=== PATIENT | male | born 1990 | race Caucasian/White ===

== ENCOUNTER 2019-08-09 10:24 | Emergency (ER) | payer SELFPAY ==
[2019-08-09 10:31] VITALS: BP 141/86
--- NOTE | 2019-08-09 11:10 | Emergency Department Report ---
ED Abdominal Pain HPI - General Chief Complaint: Urogenital-Male Stated Complaint: URINING BLOOD Time Seen by Provider: 08/09/19 11:01 Source: patient Mode of arrival: Ambulatory Limitations: No Limitations - History of Present Illness Initial Comments: 29 YO MALE COMES TO ER WITH HEMATURIA AND ABD PAIN. HE HAS 1 KIDNEY - OTHER REMOVED AT AND HE DOES NOT KNOW WHY. NO FEVER OR CHILLS DENIES N/V/D NO PENILE DC NO TESTICULAR PAIN DOES NOT FOLLOW WITH PCP OR NEPHROLOGY METH YESTERDAY OCC ETOH OCC CIG- TRYING TO STOP -: Sudden, days(s) Location: diffuse - Related Data Previous Rx's Medication Instructions Recorded Last Taken Type Doxycycline Monohydrate 100 mg PO BID #20 tablet 08/09/19 Unknown Rx Allergies Allergy/AdvReac Type Severity Reaction Status Date / Time No Known Allergies Allergy Verified 08/09/19 10:26 ED Review of Systems ROS: Stated complaint: URINING BLOOD Other details as noted in HPI Comment: All other systems reviewed and negative ED Past Medical Hx - Past Medical History Previous Medical History?: Yes Hx Hypertension: Yes - Surgical History Past Surgical History?: Yes Additional Surgical History: abd surg, kidney removed, skull fracture - Family History Family history: no significant - Social History Smoking Status: Current Every Day Smoker Substance Use Type: Alcohol, Methamphetamines - Medications Home Medications: Home Medications Medication Instructions Recorded Confirmed Last Taken Type Doxycycline Monohydrate 100 mg PO BID #20 tablet 08/09/19 Unknown Rx ED Physical Exam - General Limitations: No Limitations General appearance: alert, in no apparent distress - Head Head exam: Present: atraumatic, normocephalic - Eye Eye exam: Present: normal appearance - ENT ENT exam: Present: mucous membranes moist - Neck Neck exam: Present: normal inspection - Respiratory Respiratory exam: Present: normal lung sounds bilaterally. Absent: respiratory distress - Cardiovascular Cardiovascular Exam: Present: regular rate, normal rhythm. Absent: systolic murmur, diastolic murmur, rubs, gallop - GI/Abdominal GI/Abdominal exam: Present: soft, normal bowel sounds - Rectal Rectal exam: Present: deferred - Extremities Exam Extremities exam: Present: normal inspection - Back Exam Back exam: Present: normal inspection - Neurological Exam Neurological exam: Present: alert, oriented X3 - Psychiatric Psychiatric exam: Present: normal affect, normal mood - Skin Skin exam: Present: warm, dry, intact, normal color. Absent: rash ED Course Vital Signs 08/09/19 10:30 Temperature 97.7 F Pulse Rate 101 H Respiratory 18 Rate Blood Pressure 141/86 O2 Sat by Pulse 100 Oximetry ED Medical Decision Making - Lab Data Result diagrams: 08/09/19 12:00 08/09/19 12:10 - Radiology Data Radiology results: report reviewed, image reviewed - Medical Decision Making Vital Signs 08/09/19 10:30 Temperature 97.7 F Pulse Rate 101 H Respiratory 18 Rate Blood Pressure 141/86 O2 Sat by Pulse 100 Oximetry Labs 08/09/19 08/09/19 10:32 12:00 WBC 11.2 H RBC 5.61 H Hgb 16.3 H Hct 48.3 H MCV 86 MCH 29 MCHC 34 RDW 13.6 Plt Count 154 Urine Color Yellow Urine Turbidity Hazy Urine pH 5.0 Ur Specific [place] 1.029 Urine Protein 100 mg/dl Urine Glucose (UA) Neg Urine Ketones Neg Urine Blood Mod Urine Nitrite Neg Urine Bilirubin Neg Urine Urobilinogen < 2.0 Ur Leukocyte Esterase Sm Urine WBC (Auto) 32.0 H Urine RBC (Auto) 11.0 U Epithel Cells (Auto) < 1.0 Urine Mucus Few Labs 08/09/19 08/09/19 08/09/19 10:32 12:00 12:10 WBC 11.2 H RBC 5.61 H Hgb 16.3 H Hct 48.3 H MCV 86 MCH 29 MCHC 34 RDW 13.6 Plt Count 154 Sodium 135 L Potassium 4.0 Chloride 96.3 L Carbon Dioxide 23 Anion Gap 20 BUN 13 Creatinine 0.9 Estimated GFR > 60 BUN/Creatinine Ratio 14 Glucose 105 H Calcium 9.6 Total Bilirubin 0.90 AST 29 ALT 58 H Alkaline Phosphatase 83 Total Protein 8.4 H Albumin 4.6 Albumin/Globulin Ratio 1.2 Urine Color Yellow Urine Turbidity Hazy Urine pH 5.0 Ur Specific [place] 1.029 Urine Protein 100 mg/dl Urine Glucose (UA) Neg Urine Ketones Neg Urine Blood Mod Urine Nitrite Neg Urine Bilirubin Neg Urine Urobilinogen < 2.0 Ur Leukocyte Esterase Sm Urine WBC (Auto) 32.0 H Urine RBC (Auto) 11.0 U Epithel Cells (Auto) < 1.0 Urine Mucus Few LABS NOTED CR NORMAL PROTEIN NOTED GIVEN PT HAS ONLY 1 KIDNEY I'M CONCERNED FOR THE PROTEIN/HEMATURIA/BLOOD. NO TESTICULAR PAIN. NO DISCHARGE. NOT CONCERNED FOR STI CT SCAN NOTED MEDS GIVEN 1L NS AND 1 GM ROCEPHIN IV VSS NO FEVER NO CHILLS AMBULATORY TAKING PO EDUCATED ON NEED TO ABSTAIN FROM METH USE. NEEDS TO SEE NEPHROLOGY MD DISCUSSED WITH NEPHROLOGY DR AGUAYO- OK TO DC HOME WITH FOLLOW UP PT VERBALIZES UNDERSTANDING OF THE IMPORT OF HIM FOLLOWING UP. - Differential Diagnosis RO ACUTE KIDNEY FAILURE/ INSUFF; STD; UTIL; K STONE Critical care attestation.: If time is entered above; I have spent that time in minutes in the direct care of this critically ill patient, excluding procedure time. ED Disposition Clinical Impression: Hematuria Disposition: DC-01 TO HOME OR SELFCARE Is pt being admited?: No Does the pt Need Aspirin: No Condition: Stable Instructions: Acute Hematuria (ED) Additional Instructions: YOU NEED TO SEE KIDNEY MD ALICE REFERRAL BELOW FOLLOW UP WITH PCP REFERRAL BELOW STAY WELL HYDRATED AVOID CIG/ALCOHOL AND DRUGS MED ORDERED TODAY Prescriptions: Doxycycline Monohydrate 100 mg PO BID #20 tablet Referrals: CORDELIA AGUAYO MD [Staff Physician] - 3-5 Days KAYLEY ZAIDI MD [Staff Physician] - 3-5 Days Time of Disposition: 13:05
[2019-08-09 11:46] LABS: Bilirubin,Urine NEG (Negative); Blood,Urine MOD (Negative); Color,Urine Yellow (Yellow); Mucus,Urine FEW /HPF; Urobilinogen,Urine < 2.0 mg/dL (<2.0)
[2019-08-09] MEDS ORDERED: SODIUM CHLORIDE 0.9% 1000 ML 1,000 ML IV ONE (11:51)
[2019-08-09] MEDS ORDERED: cefTRIAXone/NS 1 GM/50 ML 1 GM/50 ML BAG IV ONE (12:05)
[2019-08-09 12:30] LABS: Hematocrit 48.3 % (35.5-45.6); Hemoglobin 16.3 gm/dl (11.8-15.2); Mean Corpuscular HGB Conc 34 % (32-34); Mean Corpuscular Volume 86 fl (84-94); Platelet Count 154 K/mm3 (140-440); Red Blood Count 5.61 M/mm3 (3.65-5.03); Red Cell Distribution Width 13.6 % (13.2-15.2)
--- NOTE | 2019-08-09 12:53 | Cat Scan Report ---
CT ABDOMEN AND PELVIS WITHOUT CONTRAST HISTORY: abd pain and hematuria COMPARISON: None. TECHNIQUE: Axial CT images were obtained through the abdomen and pelvis without IV contrast. Sagittal and coronal reformatted images. All CT scans at this location are performed using CT dose reduction for ALARA by means of automated exposure control. FINDINGS: CT ABDOMEN: Lung Bases: Clear. Liver: There is moderate diffuse fatty infiltration throughout the liver. No mass or enlargement. Biliary: No significant abnormality. Spleen: No significant abnormality. Unenlarged. Pancreas: No significant abnormality. Adrenals: 2 cm left adrenal adenoma is identified. The right adrenal gland is unremarkable. Kidneys: The right kidney is not identified suggesting agenesis, severe atrophy or surgical removal. The left kidney is unremarkable. No focal renal lesion or nephrolithiasis. Lymphatics: No lymphadenopathy. Vasculature: No significant abnormality. Bowel/Peritoneum: No significant abnormality. No free air. No free fluid. Not identified. CT PELVIS: : The bladder is poorly distended but there may be mild bladder wall thickening which could represe nt a cystitis. No obvious bladder mass. Seminal vesicles and prostate gland are unremarkable. Osseous Structures: No significant abnormality. Additional Findings: None IMPRESSION: The right kidney is not identified. The left kidney is unremarkable. The bladder is poorly evaluated on this exam but a mild cystitis could be considered. Correlate with the patient. Hepatic steatosis. Signer Name: Wang Garza Jr, MD Signed: 08/09/2019 12:49 PM Workstation Name: [id number]
[2019-08-09 12:59] LABS: Alanine Aminotransferase 58 units/L (7-56); Albumin 4.6 g/dL (3.9-5); BUN/Creatinine Ratio 14; Blood Urea Nitrogen 13 mg/dL (9-20); Calcium 9.6 mg/dL (8.4-10.2); Hemolysis Index 22
[2019-08-09 13:08] LABS: Bacteria,Urine 1+ /HPF (Negative); Bilirubin,Urine NEG (Negative); Blood,Urine SM (Negative); Color,Urine Yellow (Yellow); Mucus,Urine FEW /HPF
[2019-08-09 13:12] LABS: Benzodiazepines Screen,Urine PRESUMPTIVE NEGATIVE; Cannabinoid Screen,Urine PRESUMPTIVE NEGATIVE; Cocaine Screen,Urine PRESUMPTIVE NEGATIVE; Methadone Screen,Urine PRESUMPTIVE NEGATIVE; Opiate Screen,Urine PRESUMPTIVE NEGATIVE
[2019-08-09 13:27] LABS: Amphetamine Screen,Urine PRESUMPTIVE POSITIVE
== END 2019-08-09 13:29 | disposition home or self-care (01) ==
LOC: ED 10:24
DX: R31.9 Hematuria, unspecified (principal); R10.84 Generalized abdominal pain; I10 Essential (primary) hypertension; F17.200 Nicotine dependence, unspecified, uncomplicated; F15.10 Other stimulant abuse, uncomplicated; Z98.890 Other specified postprocedural states; Z79.899 Other long term (current) drug therapy
CPT/HCPCS: 36415; 74176; 80053; 80307; 81001; 83690; 85027; 87076; 87086; 87186; 96365; 99284; J0696; J7030